=== PATIENT | male | born 1965 | race Caucasian/White ===

== ENCOUNTER 2017-09-07 10:26 | Emergency (ER) | payer OTHER, MEDICAID ==
[2017-09-07 10:40] VITALS: RESP 16
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
[2017-09-07 13:33] VITALS: BP 112/68; PULSE 78; TEMP 97.9; O2SAT 98
== END 2017-09-07 13:33 | disposition home or self-care (01) ==
DX: S06.0X0A Concussion without loss of consciousness, initial encounter (principal); S16.1XXA Strain of muscle, fascia and tendon at neck level, initial encounter; S46.911A Strain of unspecified muscle, fascia and tendon at shoulder and upper arm level, right arm, initial encounter; V49.49XA Driver injured in collision with other motor vehicles in traffic accident, initial encounter; Y92.410 Unspecified street and highway as the place of occurrence of the external cause; Y99.8 Other external cause status; Y93.89 Activity, other specified